=== PATIENT | male | born 1960 | race Asian ===

== ENCOUNTER 2017-10-09 01:16 | Emergency (ER) | payer OTHER ==
[~2017-10-09] VITALS: Ht 170.2 cm; Wt 79.4 kg
[2017-10-09 01:16] VITALS: BP_SYST 155
[2017-10-09 01:47] VITALS: BP_SYST 155
== END 2017-10-09 01:55 ==
LOC: SED 01:16
DX: Z02.89 Encounter for other administrative examinations (principal); G92 Toxic encephalopathy; F10.129 Alcohol abuse with intoxication, unspecified; V43.52XA Car driver injured in collision with other type car in traffic accident, initial encounter; Y93.89 Activity, other specified; Y92.410 Unspecified street and highway as the place of occurrence of the external cause; Y99.8 Other external cause status
CPT/HCPCS: 99283